=== PATIENT | male | born 1940 | race Caucasian/White ===

== ENCOUNTER 2016-05-01 15:43 | Inpatient (IN) | payer MEDICARE ==
[2016-05-01] MEDS ORDERED: NS 1,000 ML IV ONE ×3 (15:50→17:20)
[2016-05-01 16:32] LABS: MPV 8.8 fL (7.4-10.4)
[2016-05-01] MEDS ORDERED: PANTOPRAZOLE 40 MG VIAL IV ONE (16:40)
[2016-05-01 16:42] LABS: BLOOD UREA NITROGEN 62 MG/DL (9-20); CALC CORRECTED 10.4 MG/DL (8.4-10.2); CALCIUM 9.6 MG/DL (8.4-10.2); CALCULATED OSMOLALITY 272 MOs/Kg (270-290); CHLORIDE 93 mEq/L (98-107); GLUCOSE 147 MG/DL (70-99); SODIUM LEVEL 130 mEq/L (137-146); TOTAL PROTEIN 7.1 G/DL (6.3-8.2)
--- NOTE | 2016-05-01 16:46 | EDPRACDOC ---
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 Mode of Arrival: Ambulance Home Medications: Home Medications Aspirin [Aspirin EC] 81 mg PO DAILY 04/15/15 Atorvastatin Calcium 80 mg PO HS 04/15/15 Ergocalciferol (Vitamin D2) [Vitamin D] 50,000 units PO .TWICE WEEKLY 04/15/15 Ezetimibe [Zetia] 10 mg PO DAILY 04/15/15 Metoprolol Succinate [Toprol Xl] 25 mg PO DAILY 04/15/15 Ramipril 10 mg PO DAILY 04/15/15 Tamsulosin HCl 0.4 mg PO DAILY 04/15/15 Oxycodone HCl [Roxicodone] 1 - 2 tabs PO Q4H PRN 04/20/15 Allergies/Adverse Reactions: Allergies Allergy/AdvReac Type Severity Reaction Status Date / Time No Known Allergies Allergy Verified 04/05/16 10:54 - History of Present Illness Onset: 04/29/2016 HPI: NAUSEA VOMITING AND SOME DIARRHEA STARTING APPROXIMATELY 5 DAYS AGO. PROGRESSIVELY GETTING WORSE PATIENT IS FEELING WEAK AND LIGHTHEADED WHENEVER HE WALKS AT THIS TIME. COUGH STARTED 3 OF 4 DAYS AGO WELL HE IS SOMEWHAT SHORT OF BREATH. IS HAD THE EXACT SAME THING. PATIENT VOMITED BLOOD 1 TIME LAST NIGHT APPROXIMATELY 30-40 CC PER ESTIMATE OF THE . NO OTHER TIMES SINCE THEN HOWEVER SHE THINKS HE MIGHT HAD A DARK STOOL WELL. NO ALCOHOL NO NSAIDS NO STEROIDS. WHEN EMS ARRIVED THE PATIENT WAS HYPOTENSIVE 80/45 PALE CYANOTIC CYCLIC SICK APPEARING WITH THE 500 CC IV FLUIDS BLOOD PRESSURES COME UP SOMEWHAT. Bleeding Duration: Reports: Intermittent Bleeding Description: Reports: After Vomiting ED Past Medical History - History Reviewed Yes Nurses notes reviewed and agree except as marked - Patient Medical History Cardiac History: Reports: Coronary Artery Disease (STENT), Hypertension, Cardiac Catheterization (1997) Psychological History: Denies: Depression Surgical History: Reports: Cardiac Catheterization (1997), Hernia Surgery - Family Medical History Reports: Cancer (MOTHER SKIN CA AND UTERINE CA), Cardiac Disorders (FATHER). Denies: Hypertension, Diabetes, Stroke - Social Medical History Smoking Status: Former smoker - Physical Exam Constitutional: Confused, Distress, Decreased Consciousness, Other (MOTTLED) Oriented to: Person Last recorded Vital Signs: Last Vital Signs Temp 98 F 05/01/16 15:45 Pulse 114 05/01/16 15:45 Resp 16 05/01/16 15:45 BP 128/73 05/01/16 15:45 Pulse Ox 90 L 05/01/16 15:45 Oxygen Pulse Oxygen Saturation 90 O2 Device Nasal Cannula Oxygen Flow Rate 2 Fraction of Inspired Oxygen ( FIO2) - HEENT Head: Normal Eye Exam: negative: Pale Conjunctiva Oropharynx: Membranes Dry Nose: No Symptoms Reported Neck: Normal. negative: Limited ROM, Lymphadenopathy, Meningeal Signs - Respiratory/Cardiovascular Respiratory: Diminished, Tachypnea, Other (NO DISTRESS). negative: Accessory Muscle Use Cardiovascular: Tachycardia - GI Auscultation: Normal Palpation: Normal Tenderness: Non tender Westfall's Sign: Negative - Musculoskeletal Back: Normal Extremities: Cyanosis. negative: Pedal Edema - Integumentary Skin: Cool, Clammy, [place]ott[place] - Neurologic Memory Impaired: Short-term Motor Function: Other (GROSSLY MOVES ALL 4 EXTREMITIES) Mood Description: Flat Thought: negative: Coherent - Re-evaluation Re-evaluation 2 Re-evaluation Time: 17:23 (DOING WELL ON SUPPLEMENTAL OXYGENT. AWAKE , ALERT, COHERENT. MOTTLING RESOLVED. CAP REFILL BRISK) Re-evaluation 1 Re-evaluation Time: 17:00 (IMPROVED, CAP REFILL BRISK, MOTTLING RESOLVED, MENTATING WELL. SO2 85% ON 2LNC. ABG PENDING) - Results 05/01/16 16:20 05/01/16 16:20 Crossmatch See Detail 05/01/16 16:20 Lab Results 05/01/16 16:20 Crossmatch See Detail - EKG EKG #1 EKG Time: 16:10 -: Yes EKG interpreted by me Rate: bpm: 115 [place]: Normal Rhythm: NSR Block: RBBB Hypertrophy: None ST: Nonsp - Diagnostic Imaging Chest Patient Name: KEISHA JIMENEZ JR LOC: ED : 1940 AGE: 76 Order Date:05/01/16 Date of Service:12/08 Report # [id number] Ord Physician: Eufemia Collins MD Exam # [id number] Emergency Physician: Eufemia Collins MD Exam(s): [id number] RAD/DG CHEST PORTABLE CLINICAL DATA: Weakness and lethargy EXAM: PORTABLE CHEST - 1 VIEW COMPARISON: None. FINDINGS: Cardiac shadow is within normal limits. Aortic calcifications are seen. Lungs are well aerated bilaterally. The right lung is clear. Patchy infiltrate is noted within the left lung in the mid and lower portions. IMPRESSION: Infiltrative densities within the mid and lower lung on the left. Electronically Signed By: Holden Forrester M.D. On: 05/01/2016 17:07 Electronically Signed By: Holden Forrester MD Electronically Signed Date/Time: [id number] Dictate Date/Time: 05/01/161705 Technologist: Nicol Mendoza Transcribed By: Nicholas Transcribed Date/Time: 05/01/161706 ED Critical Care Note - Critical Care Note Total Time (mins): 35 Comments: Due to the presence of and / or the risk of deterioration, my attendance to this patient required critical care time, including assessment/reassessment, documentation, ordering and interpreting ancillary studies, discussion with ED staff and consultants,patient and family, and excludes time spent on separately billable procedures. - Departure Final Diagnosis: Aspiration pneumonia, Hematemesis/vomiting blood, Acute respiratory failure with hypoxia, Sepsis Education/Counseling Given To: Patient, Family Member Education/Counseling Given Regarding: Diagnosis, Treatment, Prognosis Decision to Admit Time: 17:18 Decision to admit date: 05/01/16 Decision to admit: from ED - Physician Consulted Hospitalist Time Called: 17:17 Provider Called: John Servin Time Preparation Room Worker Returned Call: 17:18
[2016-05-01 17:00] LABS: LEUKOCYTES/URINE NEG (NEGATIVE); NITRITE/URINE NEG (NEGATIVE); URINE OCCULT BLOOD 1+ (NEG/TRACE)
[2016-05-01 17:03] LABS: PARTIAL THROMB. TIME 32.2 SEC (22-35); PT-INR 1.1
--- NOTE | 2016-05-01 17:10 | DIRPT ---
CLINICAL DATA: Weakness and lethargy EXAM: PORTABLE CHEST - 1 VIEW COMPARISON: None. FINDINGS: Cardiac shadow is within normal limits. Aortic calcifications are seen. Lungs are well aerated bilaterally. The right lung is clear. Patchy infiltrate is noted within the left lung in the mid and lower portions. IMPRESSION: Infiltrative densities within the mid and lower lung on the left. Electronically Signed By: Holden Forrester M.D. On: 05/01/2016 17:07
[2016-05-01] MEDS ORDERED: PIPERACILLIN AND TAZOBACTAM 3.375 GM in D5W 100 ML IV ONE (17:20)
[2016-05-01 17:26] LABS: ABG Draw Site Left Radial; ABG Draw Tech SI; ALLEN'S TEST PASS; TCO2 21.3 MMOL/L (23-27)
[2016-05-01 17:28] LABS: SEG NEUTROPHIL 90 % (45-76)
[2016-05-01] MEDS ORDERED: BENZONATATE 100 MG PERLES PO PRN (17:59)
[2016-05-01] MEDS ORDERED: Albuterol/Ipratropium Neb 3 ML NEB NEB PRN (17:59)
[2016-05-01] MEDS ORDERED: BISACODYL 10 MG SUPP PR PRN (17:59)
[2016-05-01] MEDS ORDERED: TUSSIONEX 5 ML ORAL SYRINGE PO PRN (17:59)
[2016-05-01] MEDS ORDERED: PROMETHAZINE 25 MG/ML VIAL IV PRN (17:59)
[2016-05-01] MEDS ORDERED: ONDANSETRON HCL 4 MG/2 ML VIAL IV PRN (17:59)
[2016-05-01] MEDS ORDERED: OXYCODONE HCL 5 MG TABLET PO PRN ×2 (17:59→18:02)
[2016-05-01] MEDS ORDERED: TEMAZEPAM 15 MG CAP PO PRN (17:59)
[2016-05-01] MEDS ORDERED: SENNA CONCENTRATE TAB PO PRN (17:59)
[2016-05-01] MEDS ORDERED: ACETAMINOPHEN 325 MG SUPP PR PRN (17:59)
[2016-05-01] MEDS ORDERED: NS/KCl 20 mEq 1,000 ML IV SCH (18:00)
--- NOTE | 2016-05-01 19:10 | HISTPHYS ---
- Chief Complaint Cough started 6 days ago with fever to 103.6 F vomiting started the next day and felt weak past several days. - History of Present Illness Patient is a pleasant white male who comes into the emergency room this evening complaining of 6 day history of cough and fever to 103 F that night followed by vomiting which she feels is related to the Advil he has been taking to control his fever. He feels miserable complains of lightheadedness whenever he stands. He shortness of breath is getting worse and was concerned that he might have passed some dark stool in addition to vomiting small amount of blood. On the way in here via EMS he was noted to have a blood pressure of 80/ 45. He thinks maybe he received 1 pneumonia vaccine in the past. - Medical History Cardiac History: Reports: Coronary Artery Disease (STENT), Hypertension, Cardiac Catheterization (1997), Hypercholesterolemia Respiratory History: Reports: COPD (Former smoker) GI/ History: Reports: No Significant History Musculoskeletal History: Reports: No Significant History Systemic History: Reports: No Significant History Neurological History: Reports: No Significant History Psychological History: Reports: Anxiety. Denies: Depression - Surgical History Reports: Cardiac Catheterization (1997), Hernia Surgery - Medictions/Allergies Allergies No Known Allergies Allergy (Verified 04/05/16 10:54) Current Medication List: Reviewed Home Medications Aspirin [Aspirin EC] 81 mg PO DAILY 04/15/15 Atorvastatin Calcium 80 mg PO HS 04/15/15 Ergocalciferol (Vitamin D2) [Vitamin D] 50,000 units PO .TWICE WEEKLY 04/15/15 Ezetimibe [Zetia] 10 mg PO DAILY 04/15/15 Metoprolol Succinate [Toprol Xl] 25 mg PO DAILY 04/15/15 Ramipril 10 mg PO DAILY 04/15/15 Tamsulosin HCl 0.4 mg PO DAILY 04/15/15 Oxycodone HCl [Roxicodone] 1 - 2 tabs PO Q4H PRN 04/20/15 - Family History Reports: Cancer (MOTHER SKIN CA AND UTERINE CA), Cardiac Disorders (FATHER). Denies: Hypertension, Diabetes, Stroke - Social History Travel Outside of [place] in the Last 3 Months?: No Lives: with Spouse Smoking Status: Former smoker Social History: Reports: Alcohol Use. Denies: Substance Use Disorder - Review of Systems Constitutional: Chills, Fever, Fatigue, Loss of Appetite, Weakness Eyes: No Symptoms Reported (No blurry vision, visual changes, eye pain, or eye redness.) Ears: No Symptoms Reported (No ear pain or discharge) Nose: No Symptoms Reported (No nasal discharge/congestion or bleeding) Mouth: No Symptoms Reported (No oropharyngeal lesions or erythema) Throat/Neck: No Symptoms Reported (No throat pain or swelling.No oropharyngeal lesions or erythema.) Respiratory: Cough, Shortness of Breath, Wheezing. negative: Sputum Cardiovascular: No Symptoms Reported (No chest pain or palpitations.) Gastrointestinal: Nausea, Vomiting, Other (Small amount of hematemesis) Genitourinary: Frequency, Benign prostatic hyperplasia (BPH) Neurological: Dizziness Musculoskeletal:: Weakness Integumentary: No Symptoms Reported (no rashes or lesions) Allergic/Immunologic: No Symptoms Reported (no rashes or lesions) Hematologic: No Symptoms Reported (No chronic anemia, bleeding, or easy bruising.), Other (Lymphatics- no lymph node swelling or pain.) Endocrine: No Symptoms Reported (No thyroid issues, polyuria, or polydipsia.) Psychiatric: No Symptoms Reported (Fully oriented, with normal and appropriate affect.) - Physical Exam Vital Signs: Initial Vitals Temperature 98 F 05/01/16 15:45 Pulse Rate 114 05/01/16 15:45 Respiratory Rate 16 05/01/16 15:45 Blood Pressure 128/73 05/01/16 15:45 Pulse Oxygen Saturation 90 L 05/01/16 15:45 Constitutional: Alert, Agitated, Distress Oriented to: Time, Person, Place - HEENT Head: Normal (normocephalic, atraumatic.), Other (No cervical lymphadenopathy. No supraclavicular lymphadenopathy. Neck: No palpable mass, supple , trachea midline.) Eye: Normal (pupils equal, reactive to light, and round; EOMI, Sclera white) Oropharynx: Normal (Pharynx: Moist without exudate,Gums-no swelling, No oropharyngeal lesions or erythema, Mucous membranes are dry.) ENT EAC: Normal (No oropharyngeal lesions or erythema. Mucous membranes are dry. ) TMJ: Normal Nose: No Symptoms Reported (septum midline, Nares patent, without discharge or bleeding.) Respiratory: Diminished, Rhonchi, Wheezes Cardiovascular: Tachycardia - GI Auscultation: Normal (normal active sounds) Palpation: Normal (Soft,non distended,nontender. No hepatosplenomegaly.) Tenderness: Non tender (No rebound or guarding) Westfall's Sign: Negative - Musculoskeletal Back: Normal (Non-Tender) Extremities: Normal (Normal tone, DP pulses 2+ bilaterally, No cyanosis or edema bilaterally, FROM bilaterally.) Spine: non-tender, normal alignment, limited range of motion - Integumentary Skin: Normal (Clean, dry, and intact. No rashes. No lesions.) Lymphatics: Normal (No cervical lymphadenopathy. No supraclavicular lymphadenopathy.) - Neurologic Memory Impaired: Normal Motor Function: Normal (Motor 5/5 throughout.Normal tone, Pulses 2+ No cyanosis or edema, FROM) Cranial Nerve: Normal (CN II-XII intact sensation, strength 5/5) Cerebellar: Normal. negative: Ataxia, Past-Pointing, Tremor Mood Description: Normal (Fully oriented. Normal and appropriate affect.) Thought: Coherent Perception: Normal (Normal and appropriate affect.) - Focused CV Perfusion Exam Vital Signs: Last Vital Signs Temp 101.3 F H 05/01/16 18:55 Pulse 110 05/01/16 18:55 Resp 24 05/01/16 18:55 BP 197/71 H 05/01/16 18:55 Pulse Ox 93 05/01/16 18:55 - Lab Results 05/01/16 16:20 05/01/16 16:20 Laboratory Results - last 24 hr 05/01/16 05/01/16 05/01/16 16:20 16:20 16:20 WBC RBC Hgb Hct MCV MCH MCHC RDW Plt Count MPV Neut % (Auto) Lymph % (Auto) [place] % (Auto) Eos % (Auto) Baso % (Auto) Absolute Neuts (auto) Absolute Lymphs (auto) Seg Neuts % (Manual) Band Neutrophils % Lymphocytes % (Manual) Absolute Neutrophils Absolute Lymphocytes Toxic Granulation Platelet Estimate RBC Morphology PT INR APTT Puncture Site pH pCO2 pO2 HCO3 Total CO2 Base Excess FiO2 % Specimen Drawn By Sodium 130 L Potassium 3.5 Chloride 93 L Carbon Dioxide 22 Anion Gap 19 H BUN 62 H Creatinine 1.60 H Estimated GFR (MDRD) 42 L Glucose 147 H Calculated Osmolality 272 Lactic Acid 3.2 H Calcium 9.6 Corrected Calcium 10.4 H Total Bilirubin 0.8 AST 98 H ALT 79 H Alkaline Phosphatase 66 Troponin I 0.03 Total Protein 7.1 Albumin 3.2 L TSH Urine Color Urine Clarity Urine pH Ur Specific [place] Urine Protein Urine Glucose (UA) Urine Ketones Urine Occult Blood Urine Nitrite Urine Bilirubin Urine Urobilinogen Ur Leukocyte Esterase Urine RBC Urine WBC Ur Epithelial Cells Urine Bacteria Hyaline Casts Granular Casts Urine Mucus Blood Type A POSITIVE Antibody Screen Negative Crossmatch See Detail 05/01/16 05/01/16 05/01/16 16:20 16:20 16:20 WBC 8.5 RBC 4.74 Hgb 14.1 Hct 41.6 L MCV 88 MCH 29.7 MCHC 33.8 RDW 14.4 Plt Count 225 MPV 8.8 Neut % (Auto) Cancelled Lymph % (Auto) Cancelled [place] % (Auto) Cancelled Eos % (Auto) Cancelled Baso % (Auto) Cancelled Absolute Neuts (auto) Cancelled Absolute Lymphs (auto) Cancelled Seg Neuts % (Manual) 90 H Band Neutrophils % 9 H Lymphocytes % (Manual) 1 L Absolute Neutrophils 8.42 H Absolute Lymphocytes 0.09 L Toxic Granulation 1+ Platelet Estimate Norm RBC Morphology 1+ aniso PT 11.6 H INR 1.1 APTT 32.2 Puncture Site pH pCO2 pO2 HCO3 Total CO2 Base Excess FiO2 % Specimen Drawn By Sodium Potassium Chloride Carbon Dioxide Anion Gap BUN Creatinine Estimated GFR (MDRD) Glucose Calculated Osmolality Lactic Acid Calcium Corrected Calcium Total Bilirubin AST ALT Alkaline Phosphatase Troponin I Total Protein Albumin TSH 0.84 Urine Color Urine Clarity Urine pH Ur Specific [place] Urine Protein Urine Glucose (UA) Urine Ketones Urine Occult Blood Urine Nitrite Urine Bilirubin Urine Urobilinogen Ur Leukocyte Esterase Urine RBC Urine WBC Ur Epithelial Cells Urine Bacteria Hyaline Casts Granular Casts Urine Mucus Blood Type Antibody Screen Crossmatch 05/01/16 05/01/16 05/01/16 16:22 17:20 19:02 WBC RBC Hgb Hct MCV MCH MCHC RDW Plt Count MPV Neut % (Auto) Lymph % (Auto) [place] % (Auto) Eos % (Auto) Baso % (Auto) Absolute Neuts (auto) Absolute Lymphs (auto) Seg Neuts % (Manual) Band Neutrophils % Lymphocytes % (Manual) Absolute Neutrophils Absolute Lymphocytes Toxic Granulation Platelet Estimate RBC Morphology PT INR APTT Puncture Site Left radial pH 7.470 H pCO2 28.0 L pO2 51.0 L HCO3 20.4 L Total CO2 21.3 L Base Excess -2.0 FiO2 % 21% Specimen Drawn By Si Sodium Potassium Chloride Carbon Dioxide Anion Gap BUN Creatinine Estimated GFR (MDRD) Glucose Calculated Osmolality Lactic Acid Calcium Corrected Calcium Total Bilirubin AST ALT Alkaline Phosphatase Troponin I 0.05 Total Protein Albumin TSH Urine Color Nicole Urine Clarity Cldy Urine pH 6.0 Ur Specific [place] 1.015 Urine Protein 1+ H Urine Glucose (UA) Neg Urine Ketones Neg Urine Occult Blood 1+ H Urine Nitrite Neg Urine Bilirubin Neg Urine Urobilinogen <2.0 Ur Leukocyte Esterase Neg Urine RBC 2-5 H Urine WBC 2-5 H Ur Epithelial Cells 1+ Urine Bacteria Few Hyaline Casts 2-5 H Granular Casts 2-5 H Urine Mucus Occ Blood Type Antibody Screen Crossmatch 05/01/16 05/01/16 05/02/16 22:22 22:22 01:30 WBC RBC Hgb Hct MCV MCH MCHC RDW Plt Count MPV Neut % (Auto) Lymph % (Auto) [place] % (Auto) Eos % (Auto) Baso % (Auto) Absolute Neuts (auto) Absolute Lymphs (auto) Seg Neuts % (Manual) Band Neutrophils % Lymphocytes % (Manual) Absolute Neutrophils Absolute Lymphocytes Toxic Granulation Platelet Estimate RBC Morphology PT INR APTT Puncture Site pH pCO2 pO2 HCO3 Total CO2 Base Excess FiO2 % Specimen Drawn By Sodium Potassium Chloride Carbon Dioxide Anion Gap BUN Creatinine Estimated GFR (MDRD) Glucose Calculated Osmolality Lactic Acid 1.1 Calcium Corrected Calcium Total Bilirubin AST ALT Alkaline Phosphatase Troponin I 0.06 0.06 Total Protein Albumin TSH Urine Color Urine Clarity Urine pH Ur Specific [place] Urine Protein Urine Glucose (UA) Urine Ketones Urine Occult Blood Urine Nitrite Urine Bilirubin Urine Urobilinogen Ur Leukocyte Esterase Urine RBC Urine WBC Ur Epithelial Cells Urine Bacteria Hyaline Casts Granular Casts Urine Mucus Blood Type Antibody Screen Crossmatch - Diagnostic Findings Chest x-ray shows left perihilar left lower lobe infiltrates. - Assessment (1) Sepsis A41.9 - SEPSIS, UNSPECIFIED ORGANISM Acute Present on Admission: Yes Qualifiers: Sepsis type: sepsis due to unspecified organism Qualified Code(s): A41.9 - Sepsis, unspecified organism Concerned he has multilobar pneumonia according to his chest x-ray with severe fever and feeling miserable. Start on Rocephin Zithromax combination and monitor progress in the progressive cardiac unit. (2) Pneumonia J18.9 - PNEUMONIA, UNSPECIFIED ORGANISM Present on Admission: Yes Qualifiers: Pneumonia type: due to unspecified organism Laterality: left Lung location: lower lobe of lung Qualified Code(s): J18.1 - Lobar pneumonia, unspecified organism (3) Acute respiratory failure with hypoxia J96.01 - ACUTE RESPIRATORY FAILURE WITH HYPOXIA Acute Present on Admission: Yes With his history of coronary artery disease and hypoxia would not be suppressed to see his troponins rise. (4) Hematemesis/vomiting blood K92.0 - HEMATEMESIS Acute Present on Admission: Yes Qualifiers: Nausea presence: with nausea Qualified Code(s): K92.0 - Hematemesis; R11.0 - Nausea Reluctant to use anticoagulation in this gentleman given his vomiting blood. However with his tachycardia we can address this with beta-blockade. He has been taking fair amount of ibuprofen and feel that this is lead to gastric erosions that have been bleeding. Cessation of all in sets is taking place and proton pump inhibition is ordered every 12 hours. (5) Coronary artery disease I25.10 - ATHSCL HEART DISEASE OF [place] CORONARY ARTERY W/O ANG PCTRS Acute Present on Admission: Yes Qualifiers: Coronary Disease-Associated Artery/Lesion type: [place] artery [place] vs. transplanted heart: [place] heart Associated angina: with unspecified angina Qualified Code(s): I25.119 - Atherosclerotic heart disease of [place] coronary artery with unspecified angina pectoris Troponins are trending up in the [place] and will continue to monitor this. With his troponins going up would like to decrease myocardial oxygen demand with beta blockade. Case Care Discussed with: Patient, Family, Nursing Staff Total Time: Critical care time spent 53 minutes Critical Care: Yes Code: 291
[2016-05-01] MEDS: ACETAMINOPHEN 325 MG/TAB TABLET PO PRN (19:42)
[2016-05-01] MEDS: CEFTRIAXONE 1 GM in D5W 100 ML IV SCH (19:58)
[2016-05-01] MEDS: PANTOPRAZOLE 40 MG VIAL IV SCH (19:59)
[2016-05-01] MEDS: PROBIOTIC BLEND TAB PO SCH (19:59)
[2016-05-01] MEDS: ATORVASTATIN 80 MG TAB PO SCH (20:00)
[2016-05-01] MEDS ORDERED: Vaccine Screening Complete SCH (21:00)
[2016-05-01] MEDS: AZITHROMYCIN 500 MG in D5W 250 ML IV SCH (21:58)
[2016-05-02 04:42] LABS: MPV 8.3 fL (7.4-10.4)
[2016-05-02] MEDS: ACETAMINOPHEN 325 MG/TAB TABLET PO PRN (04:52)
[2016-05-02 04:59] LABS: BLOOD UREA NITROGEN 46 MG/DL (9-20); CALCIUM 8.8 MG/DL (8.4-10.2); CALCULATED OSMOLALITY 268 MOs/Kg (270-290); CHLORIDE 97 mEq/L (98-107); GLUCOSE 114 MG/DL (70-99); SODIUM LEVEL 132 mEq/L (137-146)
[2016-05-02] MEDS: METOPROLOL TARTRATE 25 MG TAB PO SCH ×4 (05:04→21:47)
[2016-05-02] MEDS: METHYLPREDNISOLONE 40 MG/1 ML VIAL IV SCH ×3 (05:04→21:47)
[2016-05-02] MEDS: PANTOPRAZOLE 40 MG VIAL IV SCH ×2 (05:06→17:28)
[2016-05-02] MEDS ORDERED: METOPROLOL (TOPROL-XL) 25 MG TAB PO SCH (09:00)
[2016-05-02] MEDS: POTASSIUM CHLORIDE 20 MEQ TAB PO SCH ×2 (09:43→17:28)
[2016-05-02] MEDS: TAMSULOSIN HCL 0.4 MG CAP PO SCH (09:44)
[2016-05-02] MEDS: RAMIPRIL 10 MG CAP PO SCH (09:44)
[2016-05-02] MEDS: EZETIMIBE 10 MG TAB PO SCH (09:44)
[2016-05-02] MEDS: PROBIOTIC BLEND TAB PO SCH ×2 (11:45→17:28)
[2016-05-02] MEDS: NS/KCl 20 mEq 1,000 ML IV SCH ×2 (11:45→19:42)
--- NOTE | 2016-05-02 11:54 | DIRPT ---
CLINICAL DATA: Acute renal failure. EXAM: RENAL / URINARY TRACT ULTRASOUND COMPLETE COMPARISON: No prior. FINDINGS: Right Kidney: Length: 12.2 cm. Echogenicity within normal limits. No mass or hydronephrosis visualized. Left Kidney: Length: 14.5 cm. Echogenicity within normal limits. No mass or hydronephrosis visualized. Questionable stone noted in the lower pole left kidney measuring 6 mm. Bladder: Appears normal for degree of bladder distention. IMPRESSION: 1. No acute abnormality. 2. Questionable stone measuring 6 mm lower pole left kidney. Electronically Signed By: Shashi Reese On: 05/02/2016 11:51
--- NOTE | 2016-05-02 17:38 | GENMEDPROG ---
Subjective Note: 76-year-old gentleman admitted to our facility with pneumonia and renal insufficiency. He is feeling exhausted today and somewhat worn out. Notes Reviewed: Yes Events from last night noted and discussed with Clinical Staff Current Medication List: Reviewed Currently: Reports: Cough, Wheezing, ISLAS DVT Prophylaxis: Yes - Physical Examination Vital Signs and I&O: Last Vital Signs Temp 97.9 F 05/02/16 16:00 Pulse 84 05/02/16 16:00 Resp 20 05/02/16 16:00 BP 125/62 05/02/16 16:00 Pulse Ox 95 05/02/16 16:00 Oxygen Pulse Oxygen Saturation 95 O2 Device Nasal Cannula Oxygen Flow Rate 3 Fraction of Inspired Oxygen ( FIO2) Intake & Output 04/29/16 04/30/16 05/01/16 05/02/16 23:59 23:59 23:59 23:59 Intake Total 2350 2015 Output Total 100 1650 Balance 2250 365 Patient's weight 86.409 kg 87.09 kg General: Alert, Oriented x3, No acute distress, Well appearing, Well nourished HEENT: Normal (Normocephalic, atraumatic;EOMI.Sclera white, Nares patent, without discharge or bleeding. No oropharyngeal lesions or erythema. Mucous membranes are dry.) Neck: Non-tender, Full range of motion, Normal Trachea alignment, Normal inspection (No cervical lymphadenopathy. No supraclavicular lymphadenopathy.), No Masses palpable, Supple Lymphatics: Normal (No cervical lymphadenopathy. No supraclavicular lymphadenopathy.) Respiratory: Diminished, Rhonchi, Wheezes Cardiovascular: Regular rate and rhythm (No bradycardia or tachycardia), Normal S1, No Gallops,Rubs/Murmurs, Normal S2, Good Pedal Pulses (DP pulses 2+ bilaterally) GI: Normal bowel sounds (normal active sounds), Soft (non-distended), Non tender , No hepatospenomegaly, No masses Extremities/Musculoskeletal: Normal pulses (DP pulses 2+ bilaterally) Skin: Warm,Dry and Intact, No rashes, No significant lesion Neurological: Strength at 5/5 X4 ext (Motor 5/5 throughout.), Normal tone, Cranial nerves 3-12 NL ( 2-12 grossly intact.) Lab/DI/Studies Reviewed: Abnormal Lab Results 05/02/16 05/02/16 04:30 04:30 RBC 4.18 L Hgb 12.3 L D Hct 36.1 L Sodium 132 L Potassium 3.3 L Chloride 97 L BUN 46 H Estimated GFR (MDRD) 59 L Glucose 114 H Calculated Osmolality 268 L EXAM: RENAL / URINARY TRACT ULTRASOUND COMPLETE COMPARISON: No prior. FINDINGS: Right Kidney: Length: 12.2 cm. Echogenicity within normal limits. No mass or hydronephrosis visualized. Left Kidney: Length: 14.5 cm. Echogenicity within normal limits. No mass or hydronephrosis visualized. Questionable stone noted in the lower pole left kidney measuring 6 mm. Bladder: Appears normal for degree of bladder distention. IMPRESSION: 1. No acute abnormality. 2. Questionable stone measuring 6 mm lower pole left kidney. Electronically Signed By: Shashi Reese On: 05/02/2016 11:51 - Assessment (1) Sepsis Acute A41.9 - SEPSIS, UNSPECIFIED ORGANISM Qualifiers: Sepsis type: sepsis due to unspecified organism Qualified Code(s): A41.9 - Sepsis, unspecified organism Comment/Plan: Concerned he has multilobar pneumonia according to his chest x- ray with severe fever and feeling miserable. Continue current antibiotic regimen. Continue O2 supplementation. (2) Pneumonia Acute J18.9 - PNEUMONIA, UNSPECIFIED ORGANISM Qualifiers: Pneumonia type: due to unspecified organism Laterality: left Lung location: lower lobe of lung Qualified Code(s): J18.1 - Lobar pneumonia, unspecified organism Comment/Plan: Continue present care with antibiotics and O2 supplementation. (3) Acute respiratory failure with hypoxia Acute J96.01 - ACUTE RESPIRATORY FAILURE WITH HYPOXIA Comment/Plan: Troponins have been stable at about 0.5-0.7 given his renal disease this would be acceptable. (4) Hematemesis/vomiting blood Acute K92.0 - HEMATEMESIS Qualifiers: Nausea presence: with nausea Qualified Code(s): K92.0 - Hematemesis; R11.0 - Nausea Comment/Plan: No further episodes of vomiting blood continue proton pump inhibitor. (5) Coronary artery disease Acute I25.10 - ATHSCL HEART DISEASE OF [place] CORONARY ARTERY W/O ANG PCTRS Qualifiers: Coronary Disease-Associated Artery/Lesion type: [place] artery [place] vs. transplanted heart: [place] heart Associated angina: with unspecified angina Qualified Code(s): I25.119 - Atherosclerotic heart disease of [place] coronary artery with unspecified angina pectoris Comment/Plan: Suspect troponins were elevated due to renal failure will continue to monitor. - Plan Continue treatment of underlying pneumonia and hypoxemia. Disposition Plan: Likely home Case Care Discussed with: Patient Education/Counseling Given To: Patient Education/Counseling Given Regarding: Diagnosis, Treatment, Prognosis Total Time: 35 minutes Critical Care: No Couseling Time (>50% in counseling/coordination): No
[2016-05-02] MEDS: CEFTRIAXONE 1 GM in D5W 100 ML IV SCH (19:42)
[2016-05-02] MEDS: ATORVASTATIN 80 MG TAB PO SCH (21:47)
[2016-05-02] MEDS: AZITHROMYCIN 500 MG in D5W 250 ML IV SCH (21:51)
[2016-05-03 05:03] LABS: MPV 8.6 fL (7.4-10.4)
[2016-05-03] MEDS ORDERED: SODIUM CHLORIDE 0.9% 3 ML FLUSH FLUSH PRN (06:00)
[2016-05-03] MEDS: METOPROLOL TARTRATE 25 MG TAB PO SCH ×4 (06:00→23:30)
[2016-05-03] MEDS: SODIUM CHLORIDE 0.9% 3 ML FLUSH FLUSH SCH ×2 (06:01→17:53)
[2016-05-03] MEDS: PANTOPRAZOLE 40 MG VIAL IV SCH (06:01)
[2016-05-03] MEDS: METHYLPREDNISOLONE 40 MG/1 ML VIAL IV SCH ×3 (06:01→20:25)
[2016-05-03] MEDS: POTASSIUM CHLORIDE 20 MEQ TAB PO SCH ×2 (07:26→17:52)
[2016-05-03] MEDS: PROBIOTIC BLEND TAB PO SCH ×2 (07:26→17:52)
[2016-05-03] MEDS: TAMSULOSIN HCL 0.4 MG CAP PO SCH (07:27)
[2016-05-03] MEDS: EZETIMIBE 10 MG TAB PO SCH (07:27)
[2016-05-03] MEDS: RAMIPRIL 10 MG CAP PO SCH (07:27)
[2016-05-03 08:49] LABS: BLOOD UREA NITROGEN 32 MG/DL (9-20); CALCIUM 9.3 MG/DL (8.4-10.2); CALCULATED OSMOLALITY 275 MOs/Kg (270-290); CHLORIDE 105 mEq/L (98-107); GLUCOSE 134 MG/DL (70-99); SODIUM LEVEL 138 mEq/L (137-146)
[2016-05-03] MEDS ORDERED: ERGOCALCIFEROL (VITAMIN D2) 50000 UNITS CAP PO SCH (12:00)
--- NOTE | 2016-05-03 17:28 | GENMEDPROG ---
Subjective Note: Patient is feeling very well. He has been ambulating in halls. He is requesting discharge in a.m.. Notes Reviewed: Yes Events from last night noted and discussed with Clinical Staff Current Medication List: Reviewed Currently: Reports: Cough, Wheezing, ISLAS DVT Prophylaxis: Yes - Physical Examination Vital Signs and I&O: Last Vital Signs Temp 97.5 F 05/03/16 12:56 Pulse 78 05/03/16 17:20 Resp 20 05/03/16 12:56 BP 156/85 05/03/16 12:56 Pulse Ox 97 05/03/16 12:56 Oxygen Pulse Oxygen Saturation 97 O2 Device Nasal Cannula Oxygen Flow Rate 3 Fraction of Inspired Oxygen ( FIO2) Intake & Output 04/30/16 05/01/16 05/02/16 05/03/16 23:59 23:59 23:59 23:59 Intake Total 0 2014 3273 Output Total 100 1950 1400 Balance 2250 65 1874 Patient's weight 86.409 kg 87.09 kg 86.364 kg General: Alert, Oriented x3, No acute distress, Well appearing, Well nourished HEENT: Normal (Normocephalic, atraumatic;EOMI.Sclera white, Nares patent, without discharge or bleeding. No oropharyngeal lesions or erythema. Mucous membranes are dry.) Neck: Non-tender, Full range of motion, Normal Trachea alignment, Normal inspection (No cervical lymphadenopathy. No supraclavicular lymphadenopathy.), No Masses palpable, Supple Lymphatics: Normal (No cervical lymphadenopathy. No supraclavicular lymphadenopathy.) Respiratory: Diminished, Rhonchi, Wheezes Cardiovascular: Regular rate and rhythm (No bradycardia or tachycardia), Normal S1, No Gallops,Rubs/Murmurs, Normal S2, Good Pedal Pulses (DP pulses 2+ bilaterally) GI: Normal bowel sounds (normal active sounds), Soft (non-distended), Non tender , No hepatospenomegaly, No masses Extremities/Musculoskeletal: Normal pulses (DP pulses 2+ bilaterally) Skin: Warm,Dry and Intact, No rashes, No significant lesion Neurological: Strength at 5/5 X4 ext (Motor 5/5 throughout.), Normal tone, Cranial nerves 3-12 NL ( 2-12 grossly intact.) Lab/DI/Studies Reviewed: Abnormal Lab Results 05/03/16 05/03/16 04:45 04:45 RBC 4.06 L Hgb 12.1 L Hct 35.6 L RDW 14.9 H BUN 32 H Glucose 134 H - Assessment (1) Sepsis Acute A41.9 - SEPSIS, UNSPECIFIED ORGANISM Qualifiers: Sepsis type: sepsis due to unspecified organism Qualified Code(s): A41.9 - Sepsis, unspecified organism Comment/Plan: Significant improvement in the past 24 hours will continue to monitor continue current antibiotics. (2) Pneumonia Acute J18.9 - PNEUMONIA, UNSPECIFIED ORGANISM Qualifiers: Pneumonia type: due to unspecified organism Laterality: left Lung location: lower lobe of lung Qualified Code(s): J18.1 - Lobar pneumonia, unspecified organism Comment/Plan: Continue present care with antibiotics and O2 supplementation. (3) Acute respiratory failure with hypoxia Acute J96.01 - ACUTE RESPIRATORY FAILURE WITH HYPOXIA Comment/Plan: Troponins have been stable at about 0.5-0.7 given his renal disease this would be acceptable. (4) Hematemesis/vomiting blood Acute K92.0 - HEMATEMESIS Qualifiers: Nausea presence: with nausea Qualified Code(s): K92.0 - Hematemesis; R11.0 - Nausea Comment/Plan: No further episodes of vomiting blood continue proton pump inhibitor. Patient will likely need outpatient GI evaluation. (5) Coronary artery disease Acute I25.10 - ATHSCL HEART DISEASE OF [place] CORONARY ARTERY W/O ANG PCTRS Qualifiers: Coronary Disease-Associated Artery/Lesion type: [place] artery [place] vs. transplanted heart: [place] heart Associated angina: with unspecified angina Qualified Code(s): I25.119 - Atherosclerotic heart disease of [place] coronary artery with unspecified angina pectoris Comment/Plan: Suspect troponins were elevated due to renal failure will continue to monitor. (6) Elevated liver enzymes Acute R74.8 - ABNORMAL LEVELS OF OTHER SERUM ENZYMES Comment/Plan: Will recheck in a.m.. - Plan Continue treatment of underlying pneumonia and hypoxemia. Medical team conference was held on the patient discussion of diagnosis treatments plans and prognosis as well as disposition. In addition to myself the following team members were present nursing, physical therapy, speech therapy, occupational therapy, case management, social work, nutrition, instructor nurse , palliative care, and home health nursing. Input from each discipline was recieved and is incorporated in the plan of care in the medical record as well as in the plans in the progress notes. Disposition Plan: Likely home in a.m.. Case Care Discussed with: Patient, Family, Nursing Staff Education/Counseling Given To: Patient, Family Member Education/Counseling Given Regarding: Diagnosis, Treatment, Prognosis, Follow Up , Disposition Plan Total Time: 45 minutes Critical Care: No Couseling Time (>50% in counseling/coordination): No
[2016-05-03] MEDS: PANTOPRAZOLE 40 MG TAB PO SCH (17:54)
[2016-05-03] MEDS ORDERED: Medication Special Instructions SCH (18:00)
[2016-05-03] MEDS: ATORVASTATIN 80 MG TAB PO SCH (20:25)
[2016-05-03] MEDS: CEFTRIAXONE 1 GM in D5W 100 ML IV SCH (20:25)
[2016-05-03] MEDS: AZITHROMYCIN 500 MG in D5W 250 ML IV SCH (21:53)
[2016-05-04 03:42] VITALS: BMI 26.8
[2016-05-04] MEDS: PANTOPRAZOLE 40 MG TAB PO SCH (04:35)
[2016-05-04] MEDS: METOPROLOL TARTRATE 25 MG TAB PO SCH ×2 (04:35→11:10)
[2016-05-04] MEDS: SODIUM CHLORIDE 0.9% 3 ML FLUSH FLUSH SCH (04:50)
[2016-05-04] MEDS: METHYLPREDNISOLONE 40 MG/1 ML VIAL IV SCH ×2 (04:50→13:35)
[2016-05-04 05:21] LABS: MPV 9.1 fL (7.4-10.4)
[2016-05-04 05:35] LABS: BLOOD UREA NITROGEN 28 MG/DL (9-20); CALC CORRECTED 10.9 MG/DL (8.4-10.2); CALCIUM 9.5 MG/DL (8.4-10.2); CALCULATED OSMOLALITY 271 MOs/Kg (270-290); CHLORIDE 105 mEq/L (98-107); GLUCOSE 122 MG/DL (70-99); SODIUM LEVEL 137 mEq/L (137-146); TOTAL PROTEIN 5.8 G/DL (6.3-8.2)
[2016-05-04 08:14] VITALS: BP 160/84; TEMP 98.1
[2016-05-04] MEDS: POTASSIUM CHLORIDE 20 MEQ TAB PO SCH (09:29)
[2016-05-04] MEDS: PROBIOTIC BLEND TAB PO SCH (09:30)
[2016-05-04] MEDS: EZETIMIBE 10 MG TAB PO SCH (09:30)
[2016-05-04] MEDS: RAMIPRIL 10 MG CAP PO SCH (09:30)
[2016-05-04] MEDS: TAMSULOSIN HCL 0.4 MG CAP PO SCH (09:30)
--- NOTE | 2016-05-04 09:43 | CAPUEKG ---
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
[2016-05-04 11:28] VITALS: PULSE 92
--- NOTE | 2016-05-04 12:55 | PCM.DCS92 ---
- Final/Secondary Discharge Diagnosis (1) Sepsis Acute A41.9 - SEPSIS, UNSPECIFIED ORGANISM Present on Admission: Yes sepsis due to unspecified organism A41.9 - Sepsis, unspecified organism Comment: Significant improvement in the past 24 hours will continue to monitor continue current antibiotics. (2) Pneumonia Acute J18.9 - PNEUMONIA, UNSPECIFIED ORGANISM Present on Admission: Yes due to unspecified organism left lower lobe of lung J18.1 - Lobar pneumonia, unspecified organism Comment: Continue present care with antibiotics and O2 supplementation. (3) Acute respiratory failure with hypoxia Acute J96.01 - ACUTE RESPIRATORY FAILURE WITH HYPOXIA Present on Admission: Yes Comment: Troponins have been stable at about 0.5-0.7 given his renal disease this would be acceptable. (4) Hematemesis/vomiting blood Acute K92.0 - HEMATEMESIS Present on Admission: Yes with nausea K92.0 - Hematemesis; R11.0 - Nausea Comment: No further episodes of vomiting blood continue proton pump inhibitor. Patient will likely need outpatient GI evaluation. (5) Coronary artery disease Acute I25.10 - ATHSCL HEART DISEASE OF [place] CORONARY ARTERY W/O ANG PCTRS Present on Admission: Yes [place] artery [place] heart with unspecified angina I25.119 - Atherosclerotic heart disease of [place] coronary artery with unspecified angina pectoris Comment: Suspect troponins were elevated due to renal failure will continue to monitor. (6) Elevated liver enzymes Acute R74.8 - ABNORMAL LEVELS OF OTHER SERUM ENZYMES Comment: LFTs are elevated again today into the 400 range. Patient takes Lipitor and he did have some sepsis on admission. This may be a combination of the Lipitor and some shock liver. I am going to requested Dr. Lynn recheck his LFTs at his appointment on the . Will also refer him to see Dr. Ball. Discharge Disposition: Home Discharge Condition: Improved Cognitive Discharge Status: Unimpaired Fuctional Discharge Status: Independent Physician Follow up/Referrals: Virgilio Ball MD [Staff Physician] - Listed Time (follow up from hematemesis and increaed LFTs) Rosales Lynn MD [Primary Care Provider] - 05/12/16 (Please check LFTs as follow-up to elevation in hospital.) New Prescriptions: Azithromycin 500 mg PO DAILY #2 tablet Cefuroxime Axetil [Ceftin] 500 mg PO BID #10 tablet Probiotic Blend [Ashleigh Q] 1 tab PO BIDLS #60 tablet POTASSIUM CHLORIDE Tablet [K-DUR 20 mEq Tablet*] 20 meq PO BIDWM #30 tab.er.prt Discharge Home Medication List Aspirin [Aspirin EC] 81 mg PO DAILY 04/15/15 [History Confirmed 05/01/16] Ezetimibe [Zetia] 10 mg PO DAILY 04/15/15 [History Confirmed 05/01/16] Metoprolol Succinate [Toprol Xl] 25 mg PO DAILY 04/15/15 [History Confirmed 12/08] Ramipril 10 mg PO DAILY 04/15/15 [History Confirmed 05/01/16] Tamsulosin HCl 0.4 mg PO DAILY 04/15/15 [History Confirmed 05/01/16] Azithromycin 500 mg PO DAILY #2 tablet 05/04/16 [Rx] Cefuroxime Axetil [Ceftin] 500 mg PO BID #10 tablet 05/04/16 [Rx] POTASSIUM CHLORIDE Tablet [K-DUR 20 mEq Tablet*] 20 meq PO BIDWM #30 tab.er.prt 05/04/16 [Rx] Probiotic Blend [Ashleigh Q] 1 tab PO BIDLS #60 tablet 05/04/16 [Rx] New Discharge Medications (Rx) Azithromycin 500 mg PO DAILY #2 tablet 05/04/16 [Rx] Cefuroxime Axetil [Ceftin] 500 mg PO BID #10 tablet 05/04/16 [Rx] POTASSIUM CHLORIDE Tablet [K-DUR 20 mEq Tablet*] 20 meq PO BIDWM #30 tab.er.prt 05/04/16 [Rx] Probiotic Blend [Ashleigh Q] 1 tab PO BIDLS #60 tablet 05/04/16 [Rx] O2 Device: Room Air Diet at Discharge: As Tolerated, Heart Healthy Activity: No Restrictions, As Tolerated Call Office For: Worsening Symptoms, Fever over 100.5, Pain Uncontrolled By Meds - DC Summary Notes Hospital Course Note:: Discharge summary on patient named KEISHA JIMENEZ JR admitted to [facility] on 05/01/16 by Vahe Moon MD. Date of discharge is []. Very pleasant 76-year-old gentleman presented to the hospital after a week of fever and coughing and sputum production. He was found to have severe pneumonia and admitted. He responded very quickly to treatment his sepsis improved in his pneumonia improved as well. He no longer has not oxygen requirement. He has ambulated about the [place] 6 times today doing entire perimeter of the unit. He feels well and is requesting discharge home. Of note however is that his LFTs are elevated. They are in the 90s on admission and now in the 3 and 400 range. I suspect that this is due to some shock liver due to the sepsis and due to a little bit of contribution from his Lipitor. I have asked the patient to discontinue his Lipitor to follow up with Dr. Lynn for LFTs on the during his scheduled appointment. I am also going to schedule him an appointment with Dr. Ball to evaluate the liver situation. He did have some hematemesis on admission but it was felt to be secondary to severe pneumonia his hemoglobin remained stable throughout the hospitalization. A follow-up with Dr. Ball may even warrant EGD if he thinks it is necessary. At this point patient has reached maximum benefit of hospitalization he is stable for discharge home. - Physical Exam Vital Signs: Last Vital Signs Temp 98.1 F 05/04/16 08:11 Pulse 92 05/04/16 11:27 Resp 20 05/04/16 08:11 BP 160/84 05/04/16 08:11 Pulse Ox 93 05/04/16 09:45 Oxygen Pulse Oxygen Saturation 93 O2 Device Room Air Oxygen Flow Rate 3 Fraction of Inspired Oxygen ( FIO2) Constitutional: No apparent distress Oriented to: Time, Person, Place - HEENT Head: Normal (normocephalic, atraumatic.), Other (No cervical lymphadenopathy. No supraclavicular lymphadenopathy. Neck: No palpable mass, supple , trachea midline.) Eye: Normal (pupils equal, reactive to light, and round; EOMI, Sclera white) Oropharynx: Normal (Pharynx: Moist without exudate,Gums-no swelling, No oropharyngeal lesions or erythema, Mucous membranes are dry.) ENT EAC: Normal (No oropharyngeal lesions or erythema. Mucous membranes are dry. ) TMJ: Normal Nose: No Symptoms Reported (septum midline, Nares patent, without discharge or bleeding.) - Respiratory/Cardiovascular Respiratory: Diminished, Rhonchi, Wheezes - GI Auscultation: Normal (normal active sounds) Palpation: Normal (Soft,non distended,nontender. No hepatosplenomegaly.) Tenderness: Non tender (No rebound or guarding) Westfall's Sign: Negative - Musculoskeletal Back: Normal (Non-Tender) Extremities: Normal (Normal tone, DP pulses 2+ bilaterally, No cyanosis or edema bilaterally, FROM bilaterally.) - Integumentary Skin: Normal (Warm dry no rashes) Lymphatics: Normal (No cervical lymphadenopathy. No supraclavicular lymphadenopathy.) - Neurologic Memory Impaired: Normal Motor Function: Normal (Motor 5/5 throughout.Normal tone, Pulses 2+ No cyanosis or edema, FROM) Cranial Nerve: Normal (CN II-XII intact sensation, strength 5/5) Cerebellar: Normal. negative: Ataxia, Past-Pointing, Tremor Mood Description: Normal (Fully oriented. Normal and appropriate affect.) Thought: Coherent Perception: Normal (Normal and appropriate affect.) - Other Exam Other Exam Findings: Laboratory Results - last 24 hr 05/04/16 05/04/16 05:10 05:10 WBC 10.1 RBC 4.30 L Hgb 12.8 L Hct 38.2 L MCV 89 MCH 29.9 MCHC 33.7 RDW 14.8 H Plt Count 266 MPV 9.1 Sodium 137 Potassium 4.9 Chloride 105 Carbon Dioxide 25 Anion Gap 12 BUN 28 H Creatinine 1.00 Estimated GFR (MDRD) > 60 Glucose 122 H Calculated Osmolality 271 Calcium 9.5 Corrected Calcium 10.9 H Total Bilirubin 0.6 AST 476 H ALT 327 H Alkaline Phosphatase 77 Total Protein 5.8 L Albumin 2.6 L Laboratory Tests 05/01/16 16:20 Total Bilirubin 0.8 AST 98 H ALT 79 H Albumin 3.2 L
== END 2016-05-04 14:20 | disposition home or self-care (01) | DRG 871 ==
LOC: ED 15:43 → PCU 17:59
PROVIDERS: ADMIT Internal Medicine; ATTEND Hospitalist
PROC: 039C3ZZ Drainage of Left Radial Artery, Percutaneous Approach (ICD-10-PCS; principal; 2016-05-01)
DX: A41.9 Sepsis, unspecified organism (principal); J18.9 Pneumonia, unspecified organism; J96.01 Acute respiratory failure with hypoxia; K92.0 Hematemesis; J44.0 Chronic obstructive pulmonary disease with (acute) lower respiratory infection; I25.119 Atherosclerotic heart disease of native coronary artery with unspecified angina pectoris; R74.8 Abnormal levels of other serum enzymes; Z98.61 Coronary angioplasty status; I10 Essential (primary) hypertension; E78.00 Pure hypercholesterolemia, unspecified; Z87.891 Personal history of nicotine dependence; F41.9 Anxiety disorder, unspecified; Z79.82 Long term (current) use of aspirin; Z79.899 Other long term (current) drug therapy
CPT/HCPCS: 36415; 36600; 71010; 76770; 80048; 80053; 81001; 82803; 83605; 83735; 84443; 84484; 85007; 85027; 85610; 85730; 86850; 86900; 86901; 86920; 87040; 87086; 93005; 96361; 96375; 99284; G0237; J0456; J0696; J2543; J2920; J3490; J7040; J7060; J7070; S0164

== ENCOUNTER → 2016-05-17 | Day surgery (SDC) | payer MEDICARE ==
[2016-05-11 13:34] VITALS: BMI 28.8
[~2016-05-17] MED LIST: ACETAZOLAMIDE 250 MG TAB PO ONE; BSS 500 ml-Vancomycin 10 mg-Phenylephrine 1 mg Irrigation IR ONE; CHONDROITIN SULFATE 0.5 ML/PFS INTRAOC ONE; DEXAMETHASONE 4 MG/ML VIAL IV PRN; DIAZEPAM 5 MG TAB PO PRN; FENTANYL 100 MCG/2 ML VIAL IV PRN; FENTANYL 100 MCG/2 ML VIAL ONE; HYDROCODONE 5 MG/ACETAMIN 325 MG TAB PO PRN; Hyaluronate Sodium (Provisc) 5.5 mg/0.55 ml syringe INTRAOC ONE; LABETALOL 20 MG/4 ML SYRINGE IV PRN; LIDOCAINE 1% 2 ML (METHYLPARABEN FREE) INF ONE; LR 1,000 ML IV ONE; LR 1,000 ML IV SCH; MIDAZOLAM 2 MG/2 ML VIAL ONE; NS 1,000 ML IV SCH; NS 250 ML IV SCH; ONDANSETRON HCL 4 MG/2 ML VIAL IV PRN; PHENYLEPHRINE 10 % OPHTH SOLN 5 ML BOT OP EYE ONE; PROPOFOL 200 MG/20 ML VIAL IV ONE; SCOPOLAMINE TRANSDERMAL PATCH TOP PRN; TETRACAINE 0.5% 2 ML OPHTH SOLN OP EYE ONE; TETRACAINE 0.5% 2 ML OPHTH SOLN OP EYE PRN; TROPICAMIDE 1% OPHTH SOLN 2 ML BOTTLE OP EYE ONE; Vancomycin 10 MG, Phenylephrine 1,000 MCG in Balanced Salt Solution 500 ML IO ONE; hydrALAZINE 20 MG/ML VIAL IV PRN
--- NOTE | 2016-05-17 10:15 | SC.ANESEVA ---
Anesthesia Eval & Plan ([facility]) - Providers Stated Procedure: left eye catarct surgery Surgeon:: Yumiko Fernandez - Medications/Allergies Allergies: Allergies NSAIDS (Non-Steroidal Anti-Inflamma Allergy (Verified 05/01/16 21:35) See Comments caused patient to vomit blood, GI Bleed Home Medications: Home Medication List Atorvastatin Calcium [Lipitor] 80 mg PO DAILY 05/11/16 [History] Current Medication List: Reviewed - Focused Physical Exam NPO since: after Midnight Mallampati: Class II Neck: Full Range of Motion Cardiovascular/Chest: Normal Respiratory: Lungs clear Any problems with anesthesia, including nausea and vomiting?: No Prone to Motion Sickness: No Other: Diagnoses AGE-RELATED NUCLEAR CATARACT, LEFT EYE (05/17/16) Problem List Problem Status Onset Acute respiratory failure with hypoxia Acute Aspiration pneumonia Acute Coronary artery disease Acute Elevated liver enzymes Acute Hematemesis/vomiting blood Acute Pneumonia Acute Sepsis Acute Allergies Allergy/AdvReac Type Severity Reaction Status Date / Time NSAIDS (Non-Steroidal Allergy See Verified 05/01/16 21:35 Anti-Inflamma Comments Home Medications Medication Instructions Recorded Last Taken Type Aspirin [Aspirin EC] 81 mg PO DAILY 04/15/15 05/04/16 09:15 History Ezetimibe [Zetia] 10 mg PO DAILY 04/15/15 05/04/16 09:15 History Metoprolol Succinate [Toprol Xl] 25 mg PO DAILY 04/15/15 05/04/16 11:00 History Ramipril 10 mg PO DAILY 04/15/15 05/04/16 09:15 History Tamsulosin HCl 0.4 mg PO DAILY 04/15/15 05/04/16 09:15 History Atorvastatin Calcium [Lipitor] 80 mg PO DAILY 05/11/16 Unknown History Height and Weight Patient's height 5 ft 10 in Patient's weight 90.91 kg Weight (Calculated Kilograms) 90.910 BMI 28.8 Vital Signs Temperature 96.5 F L 05/17/16 10:11 Pulse Rate 60 05/17/16 10:11 Respiratory Rate 18 05/17/16 10:11 Blood Pressure 136/74 05/17/16 10:11 Pulse Oxygen Saturation 99 05/17/16 10:11 - Anesthetic Plan Anesthesia Type: MAC ASA Class: 3 - Focused Review of Systems Cardiac History: Yes: Hx Hypertension, Hx Cardiac Catheterization (1997), Hx Coronary Stent (1997), Hx Cardiac Disorders, Hx Abnormal Cholesterol/ Hyperlipidemia (DYSLIPIDEMIA) HEENT: Yes: Cataracts, Cataract Removal (04/01/2016), Hx Vision Problem (GLASSES) , Other HEENT Problems Respiratory: Yes: Hx Chronic Obstructive Pulmonary Disease (COPD) (Former smoker ) No: Hx Recent Cold/Flu Gastrointestinal: Yes: Hx Gastroesophageal Reflux Disease, Hx Gastrointestinal Disorders, Hx Colonoscopy (POLYPECTOMY ) Neurological/Musculoskeletal: No: Hx Neurological Disorders Blood/Autoimmune: No: Hx AIDS, Hx Hepatitis (type) Smoking Status: Former smoker Past Social History: Denies: Substance Use Disorder Other Surgical History: hemrrhoidectomy SKIN LESION REMOVAL,MELANOMA
[2016-05-17 11:15] VITALS: TEMP 97.5
--- NOTE | 2016-05-17 11:16 | HIMOPRPT ---
DATE OF PROCEDURE: 05/17/16 PREOPERATIVE DIAGNOSIS: Cataract left eye. POSTOPERATIVE DIAGNOSIS: Cataract left eye. PROCEDURE: Cataract extraction by phacoemulsification of the left eye SURGEON: Yumiko Fernandez MD. ANESTHESIA: IV Sedation/Topical. COMPLICATIONS: None. PRE-OPERATIVE EVALUATION: The patient has been examined and deemed medically stable for cataract extraction with no apparent need for inpatient observation; outpatient setting is appropriate. Patient appears to be oriented to time, place and person. PROCEDURE IN DETAIL: The correct eye confirmed by patient, doctor, staff and paperwork. The operative eye was then marked by the doctor in the preoperative area. Eye drops were instilled into the operative eye to dilate the pupil. The patient was transported to the operating room and was placed in the supine position. A time out was performed before the beginning of the procedure. The operative eye was prepped and draped in the usual sterile fashion for ophthalmic surgery, taking care to isolate the lashes from the surgical field. Topical anesthetic drops were instilled into the operative eye. A lid speculum was placed. Betadine 5% was instilled in the operative eye for antiseptic. Microscope was brought into place for use throughout the case. The eye was inspected. A paracentesis incision was created with a side port knife. The temporal limbal corneal incision was performed with a andrés blade. Viscoelastic was injected into the anterior chamber. Capsule forceps were used to create a capsulorhexis. Hydrodissection was performed with BSS. The nucleus was removed by phacoemulsification. Phaco time is noted below. The remaining cortical material was removed by I&A. The capsular bag was noted to be intact and distended with viscoelastic. The Intraocular lens was placed into the intact bag and centered without difficulty. The remaining viscoelastic was removed by I&A. Betadine 5% drops were placed to inspect wound and for antisepsis. Inspection revealed watertight wounds. The lid speculum was removed. Postoperative medications were instilled into the eye and a shield secured over the operative eye. IOL Type [id number] SN [id number] IOL Power 22.5 CDE 4.10 Discharge Summary: There were no complications and the patient was taken to the postoperative area in good condition. Postoperative instructions and outpatient follow up time were given.
[2016-05-17 11:18] VITALS: BP 107/59; PULSE 74
--- NOTE | 2016-05-17 12:27 | SC.ANESPOS ---
Post-Anesthesia Note LOC: Fully Awake Post-Anesthesia Assessment: Awake, Returned to Baseline, Hemodynamically Stable , Pain Control Adequate Phase I & II Recovery Complete: Yes Apparent Anesthesia Complication: No : N - Vital Signs Blood Pressure: 107/59 Pulse: 74 Resp Rate: 18 O2 Sat: 96 Temp: 97.5 F
== END ==
LOC: CPSC 09:12
PROVIDERS: ATTEND Ophthalmology
PROC: 08RK3JZ Replacement of Left Lens with Synthetic Substitute, Percutaneous Approach (ICD-10-PCS; principal; 2016-05-17 11:45)
DX: H25.12 Age-related nuclear cataract, left eye (principal); I10 Essential (primary) hypertension; I25.10 Atherosclerotic heart disease of native coronary artery without angina pectoris; E78.5 Hyperlipidemia, unspecified; J44.9 Chronic obstructive pulmonary disease, unspecified; K21.9 Gastro-esophageal reflux disease without esophagitis; N40.0 Benign prostatic hyperplasia without lower urinary tract symptoms; Z87.891 Personal history of nicotine dependence; Z79.899 Other long term (current) drug therapy; Z95.5 Presence of coronary angioplasty implant and graft
CPT/HCPCS: 66984; A9270; J2001; J2250; J2704; J3010; V2632; J3490